=== PATIENT | male | born 2000 | race Caucasian/White ===

== ENCOUNTER 2021-10-03 23:12 | Emergency (ER) | payer BC ==
[2021-10-03] MEDS ORDERED: Ondansetron 4 MG/2 ML SDV IVPUSH ONE (23:31)
[2021-10-03] MEDS ORDERED: Lactated Ringers 1,000 ML IV ONE (23:31)
[2021-10-03] MEDS ORDERED: Sodium Chloride 0.9% 10 ML Syringe FLUSH PRN (23:31)
--- NOTE | 2021-10-03 23:33 | EDM.PDOC ---
ED HPI GENERAL MEDICAL PROBLEM - General Chief Complaint: Gastrointestinal Problem Stated Complaint: Vomiting Time Seen by Provider: 10/03/21 23:22 Source of Information: Reports: Patient - History of Present Illness INITIAL COMMENTS - FREE TEXT/NARRATIVE: Ajay is a 21 y/o male who presents to the ER with an acute onset of nause, vomiting, and diarrhea that started about 1200 today. He first got nauseated and really couldn't eat anything at all today, then he reports vomting 5-6 times and then having 10 diarrhea stools. He has mild abdominal pain. No fever, but he did feel hot and cold today. - Related Data Allergies Allergy/AdvReac Type Severity Reaction Status Date / Time No Known Allergies Allergy Verified 06/04/16 02:51 Past Medical History Psychiatric History: Reports: Anxiety, Depression - Past Surgical History Dermatological Surgical History: Reports: Skin Graft Review of Systems - Review of Systems Review Of Systems: See Below Constitutional: Reports: Weakness Eyes: Reports: No Symptoms Ears: Reports: No Symptoms Nose: Reports: No Symptoms Mouth/Throat: Reports: No Symptoms Respiratory: Reports: No Symptoms Cardiovascular: Reports: No Symptoms GI/Abdominal: Reports: Abdominal Pain, Diarrhea, Nausea, Vomiting Genitourinary: Reports: No Symptoms Musculoskeletal: Reports: No Symptoms Skin: Reports: No Symptoms Neurological: Reports: No Symptoms Psychiatric: Reports: No Symptoms ED EXAM, GENERAL - Physical Exam Exam: See Below Exam Limited By: No Limitations General Appearance: Alert, WD/WN, No Apparent Distress (Tamir gadult male, appea rs to not feel well.) Eye Exam: Bilateral Eye: PERRL Ears: Normal External Exam, Hearing Grossly Normal Nose: Normal Inspection, Normal Mucosa Throat/Mouth: Normal Inspection, Normal Lips, Normal Oropharynx, Normal Voice Head: Atraumatic, Normocephalic Neck: Supple Respiratory/Chest: No Respiratory Distress, Lungs Clear, Chest Non-Tender Cardiovascular: Normal Peripheral Pulses, Regular Rate, Rhythm, No Murmur GI/Abdominal: Normal Bowel Sounds, Soft, Non-Tender, No Distention (Male) Exam: Deferred Rectal (Males) Exam: Deferred Back Exam: Normal Inspection Extremities: Normal Inspection, Normal Range of Motion, No Pedal Edema, Normal Capillary Refill Neurological: Alert, Oriented, CN II-XII Intact, Normal Cognition, No Motor/Sensory Deficits Psychiatric: Normal Affect, Normal Mood Skin Exam: Warm, Dry, Intact, Normal Color, No Rash Lymphatic: No Adenopathy Course - Vital Signs Text/Narrative:: 4117 The patient was seen by the INSPECTOR TUBES. Labs ordered. He as given a liter of LR and Zofran 4mg IVP. 0030 Feeling better after fluids and Zofran. Labs reviewed. Note WBC=17.9 Neuts=91.8%. CMP BUN=20, Llfoonn=173. UA SG=1.025, Ketones=80, other labs negative. Discussed with patient proceeding with CT imaging tonight vs follow up tomorrow in clinic since he is feeling better and afebrile. Discussed with him the possibility of appendicitis vs gastroenteritis as possible differential dx. He agrees to go home tonight with Walter and see how his sx are in the AM. Patient is sober and has capacity to make his own medical decisions. Will send him home with Walter ODT. Written instructions were given and he left the ER in stable condition. - Orders/Labs/Meds Orders: Active Orders 24 hr Category Date Time Status Sodium Chloride 0.9% [Saline Flush] Med 10/03/21 23:31 Active 10 ml FLUSH ASDIRECTED PRN Saline Lock Insert [OM.PC] Stat Oth 10/03/21 23:30 Ordered Medication Orders Sodium Chloride (Sodium Chloride 0.9% 10 Ml Syringe) 10 ml FLUSH ASDIRECTED PRN PRN Reason: Keep Vein Open Labs: Laboratory Tests 10/03/21 10/03/21 10/04/21 Range/Units 23:50 23:50 00:10 WBC 17.9 H (4.0-10.0) x10^3/uL RBC 5.29 (4.5-6.0) x10^6/uL Hgb 16.2 (14.0-18.0) g/dL Hct 46.1 (40.0-52.0) % MCV 87.1 (78.0-93.0) fL MCH 30.6 (26.0-32.0) pg MCHC 35.1 (32.0-36.0) g/dL RDW Coeff of Odin 11.9 (10.0-15.0) % Plt Count 279 (130-400) x10^3/uL Immature Gran % (Auto) 0.10 (0.00-0.43) % Neut % (Auto) 91.8 H (50.0-80.0) % Lymph % (Auto) 3.1 L (25.0-50.0) % Sac % (Auto) 4.3 (2.0-11.0) % Eos % (Auto) 0.6 (0.0-4.0) % Baso % (Auto) 0.1 L (0.2-1.2) % Neut # (Auto) 16.4 H (1.8-7.7) x10^3/uL Lymph # (Auto) 0.6 L (1.0-4.8) x10^3/uL Sac # (Auto) 0.8 (0.0-0.8) x10^3/uL Eos # (Auto) 0.1 (0.0-0.5) x10^3/uL Baso # (Auto) 0.0 (0.0-0.2) x10^3/uL Immature Gran # (Auto) 0.02 (0.00-0.07) x10^3/uL Sodium 142 (136-145) mmol/L Potassium 4.1 (3.5-5.1) mmol/L Chloride 101 (98-107) mmol/L Carbon Dioxide 29 (21-32) mmol/L Anion Gap 16.1 H (5-15) mmol/L BUN 20 H (7-18) mg/dL Creatinine 0.9 (0.70-1.30) mg/dL Est Cr Clr Drug Dosing TNP Estimated GFR (MDRD) > 60 Glucose 103 H (70-99) mg/dL Calcium 9.3 (8.5-10.1) mg/dL Corrected Calcium 9.0 (8.5-10.1) mg/dL Magnesium 2.0 (1.8-2.4) mg/dL Total Bilirubin 0.8 (0.2-1.0) mg/dL AST 33 (15-37) U/L ALT 110 H (16-63) U/L Alkaline Phosphatase 104 (46-116) U/L Total Protein 7.6 (6.4-8.2) g/dL Albumin 4.4 (3.4-5.0) g/dL Globulin 3.2 Albumin/Globulin Ratio 1.38 Amylase 22 L (25-115) U/L Lipase 46 L (73-393) U/L Urine Color Yellow (YELLOW) Urine Appearance Clear (CLEAR) Urine pH 7.0 (5.0-8.0) Ur Specific [place] 1.025 Urine Protein Negative (NEGATIVE) mg/dL Urine Glucose (UA) Negative (NEGATIVE) mg/dL Urine Ketones 80 H (NEGATIVE) mg/dL Urine Occult Blood Trace-intact H (NEGATIVE) Urine Nitrite Negative (NEGATIVE) Urine Bilirubin Small H (NEGATIVE) Urine Urobilinogen 0.2 (0.2) EU/dL Ur Leukocyte Esterase Negative (NEGATIVE) Urine RBC 0-5 (NOT SEEN) /HPF Urine WBC 0-5 (NOT SEEN) /HPF Ur Squamous Epith Cells Not seen (NOT SEEN) /HPF Urine Bacteria Rare (NOT SEEN) /HPF Urine Mucus Rare H (NOT SEEN) /LPF Meds: Medications Generic Name Dose Route Start Last Admin Trade Name Freq PRN Reason Stop Dose Admin Sodium Chloride 10 ml 10/03/21 23:31 Sodium Chloride 0.9% 10 Ml Syringe FLUSH ASDIRECTED PRN Keep Vein Open Discontinued Medications Generic Name Dose Route Start Last Admin Trade Name Freq PRN Reason Stop Dose Admin Lactated Ringer's 1,000 mls @ 999 mls/hr 10/03/21 23:31 Ringers, Lactated IV 10/04/21 00:31 ONETIME ONE Ondansetron HCl 4 mg 10/03/21 23:31 Ondansetron 4 Mg/2 Ml Sdv IVPUSH 10/03/21 23:32 ONETIME ONE Ondansetron HCl 1 packet 10/04/21 00:51 10/04/21 00:59 Take Home: Ondansetron 4 Mg Tab.Dis, 5 Tab Pack PO 10/04/21 00:52 1 packet ONETIME ONE Administration Departure - Departure Time of Disposition: 00:53 Disposition: DC/[facility] to [facility] 05 Condition: Good Clinical Impression: Vomiting, Diarrhea Elevated WBC count Qualifiers: Leukocytosis type: bandemia Qualified Code(s): D72.825 - Bandemia - Discharge Information Instructions: Ondansetron oral dissolving tablet, Leukocytosis, Nausea and Vomiting, Adult Forms: ED Department Discharge Additional Instructions: -Ondanestron ODT 4mg oral every 6 hours as needed for nausea #5 (ER Rx) -Rest your gut tonight and then advance your diet with clear liquids, then soft bland foods. -If your symptoms are not better, follow up tomorrow in the clinic for repeat labs or return to the ER for further studies. - Problem List & Annotations (1) Diarrhea SNOMED Code(s): 59463371 Code(s): R19.7 - DIARRHEA, UNSPECIFIED Status: Acute (2) Elevated WBC count SNOMED Code(s): 176451567, 487189864 Code(s): D72.829 - ELEVATED WHITE BLOOD CELL COUNT, UNSPECIFIED Status: Acute Annotation/Comment:: WBC=17.9, NEuts=91.8%, no fever. Qualifiers: Leukocytosis type: bandemia Qualified Code(s): D72.825 - Bandemia (3) Vomiting SNOMED Code(s): 049010993 Code(s): R11.10 - VOMITING, UNSPECIFIED Status: Acute Annotation/Comment:: Sx improved with IV fluids and Zofran. - Problem List Review Problem List Initiated/Reviewed/Updated: Yes - My Orders Last 24 Hours: My Active Orders 10/03/21 23:30 Saline Lock Insert [OM.PC] Stat 10/03/21 23:31 Sodium Chloride 0.9% [Saline Flush] 10 ml FLUSH ASDIRECTED PRN - Assessment/Plan Last 24 Hours: My Active Orders 10/03/21 23:30 Saline Lock Insert [OM.PC] Stat 10/03/21 23:31 Sodium Chloride 0.9% [Saline Flush] 10 ml FLUSH ASDIRECTED PRN Plan: As noted above. Return to ER if worsening of sx Follow up with clinic provider tomorrow for repeat labs
[2021-10-04 00:18] LABS: CHLORIDE,CL 101 mmol/L (98-107); SODIUM,NA 142 mmol/L (136-145)
[2021-10-04 00:19] LABS: ANION GAP 16.1 mmol/L (5-15)
[2021-10-04] MEDS ORDERED: Take Home: Ondansetron 4 MG Tab.DIS, 5 Tab Pack PO ONE (00:51)
[2021-10-04 02:53] VITALS: BP 136/82; PULSE 78
== END 2021-10-04 01:05 | disposition designated cancer center or children's hospital (05) ==
LOC: VM.ED 23:12
DX: R11.2 Nausea with vomiting, unspecified (principal); R19.7 Diarrhea, unspecified; D72.829 Elevated white blood cell count, unspecified
CPT/HCPCS: 36415; 80053; 81001; 82150; 83690; 83735; 85025; 96374; 99284; 99284-25; J2405; J7120; Q0162

== ENCOUNTER 2022-03-25 04:45 | Emergency (ER) | payer BC ==
[2022-03-25] MEDS ORDERED: Amoxicillin 875 MG Tab PO STA (04:58)
[2022-03-25 05:55] VITALS: BP 157/101; PULSE 89
== END 2022-03-25 05:07 | disposition home or self-care (01) ==
LOC: VM.ED 04:48
DX: H66.003 Acute suppurative otitis media without spontaneous rupture of ear drum, bilateral (principal); J06.9 Acute upper respiratory infection, unspecified
CPT/HCPCS: 99283; A9270-GY

== ENCOUNTER 2024-06-08 01:05 | Emergency (ER) | payer BC ==
[2024-06-08 01:27] VITALS: BP 128/78; PULSE 81
[2024-06-08] MEDS: Ondansetron 4 MG Tab.DIS PO ONE (01:38)
== END 2024-06-08 01:39 | disposition home or self-care (01) ==
LOC: SUPCPDRO 01:05 → VM.ED 01:05
DX: F10.121 Alcohol abuse with intoxication delirium (principal); Z88.8 Allergy status to other drugs, medicaments and biological substances; Y90.9 Presence of alcohol in blood, level not specified
CPT/HCPCS: 99283; A9270

== ENCOUNTER 2025-06-07 02:53 | Emergency (ER) | payer BC ==
[2025-06-07] MEDS ORDERED: Sodium Chloride 0.9% 10 ML Syringe FLUSH PRN (03:09)
[2025-06-07] MEDS: LORazepam 2 MG/ML SDV IVPUSH ONE ×2 (03:12→03:24)
[2025-06-07 03:32] LABS: BASOPHILS ABSOLUTE AUTO 0.0 x10^3/uL (0.0-0.2); BASOPHILS PERCENT AUTO 0.3 % (0.2-1.2); EOSINOPHILS ABSOLUTE AUTO 0.2 x10^3/uL (0.0-0.5); EOSINOPHILS PERCENT AUTO 1.5 % (0.0-4.0); IMMATURE GRAN ABSOLUTE AUTO 0.02 x10^3/uL (0.00-0.07); IMMATURE GRAN PERCENT AUTO 0.20 % (0.00-0.43); LYMPHOCYTES ABSOLUTE AUTO 3.7 x10^3/uL (1.0-4.8); LYMPHOCYTES PERCENT AUTO 29.5 % (25.0-50.0); MONOCYTES ABSOLUTE AUTO 0.9 x10^3/uL (0.0-0.8); MONOCYTES PERCENT AUTO 6.8 % (2.0-11.0); NEUTROPHILS ABSOLUTE AUTO 7.7 x10^3/uL (1.8-7.7); NEUTROPHILS PERCENT AUTO 61.7 % (50.0-80.0); PLATELET COUNT,PLT 308 x10^3/uL (130-400); RED BLOOD CELL COUNT 5.17 x10^6/uL (4.5-6.0); WHITE BLOOD CELL COUNT,WBC 12.4 x10^3/uL (4.0-10.0)
[2025-06-07 03:34] LABS: INR 1.0 (0.9-1.1)
[2025-06-07 03:41] LABS: A/G RATIO 1.76; ALANINE AMINOTRANSFERASE,ALT 78 U/L (16-63); ASPARTATE AMNIOTRANSFERASE,AST 43 U/L (15-37); BILIRUBIN TOTAL 0.3 mg/dL (0.2-1.0); BLOOD UREA NITROGEN,BUN 15 mg/dL (7-18); CARBON DIOXIDE,CO2 24 mmol/L (21-32); CHLORIDE,CL 103 mmol/L (98-107); CREATININE 1.1 mg/dL (0.70-1.30); GLUCOSE RANDOM 113 mg/dL (70-99); POTASSIUM,K 3.4 mmol/L (3.5-5.1); PROTEIN TOTAL,TP 6.9 g/dL (6.4-8.2); SODIUM,NA 142 mmol/L (136-145)
[2025-06-07 03:42] LABS: ESTIMATED GFR 96 mL/min (>=60); ETHANOL BLOOD MEDICAL 560 mg/dL (0-3)
[2025-06-07] MEDS: Lactated Ringers 1,000 ML IV ONE (03:45)
[2025-06-07 10:11] VITALS: BP 124/68; PULSE 109
[2025-06-07] MEDS: Diphtheria,Pertussis(Acell),Tetanus Vaccine 0.5 ML Syringe IM ONE (10:29)
== END 2025-06-07 11:00 | disposition home or self-care (01) ==
LOC: VM.ED 02:53 → SUPCPDRO 02:56 → VM.ED 11:00
DX: S01.511A Laceration without foreign body of lip, initial encounter (principal); S01.21XA Laceration without foreign body of nose, initial encounter; F10.120 Alcohol abuse with intoxication, uncomplicated; Z79.899 Other long term (current) drug therapy; Z23 Encounter for immunization; Y09 Assault by unspecified means
CPT/HCPCS: 12011; 36415; 70450; 70486; 72125; 80053; 80307; 85025; 85610; 90471; 90715; 96374; 99284; 99284-25; J2060; J7120